=== PATIENT | male | born 1975 | race Caucasian/White ===

== ENCOUNTER 2018-03-10 15:41 | Emergency (ER) | payer MEDICAID ==
[2018-03-10] MEDS: ONDANSETRON (ODT) 4 MG TAB ODT (16:43)
== END 2018-03-10 16:59 | disposition home or self-care (01) ==
LOC: FTE 15:41
DX: R11.10 Vomiting, unspecified (principal); R19.7 Diarrhea, unspecified
CPT/HCPCS: 99283; Z7502

== ENCOUNTER 2019-04-29 16:18 | Emergency (ER) | payer MEDICAID | END 2019-04-29 17:26 | disposition home or self-care (01) | LOC: FTE 16:18 | DX: K52.9 Noninfective gastroenteritis and colitis, unspecified (principal) | CPT/HCPCS: 99282 ==